=== PATIENT | female | born 1990 | race Caucasian/White ===

== ENCOUNTER 2022-11-04 18:17 | Emergency (ER) | payer OTHER ==
[~2022-11-04] VITALS: Ht 165.1 cm; Wt 63.5 kg
[2022-11-04] MEDS ORDERED: IBUPROFEN 600 MG TABLET ONE (18:54)
[2022-11-04] MEDS ORDERED: IBUPROFEN 600 MG TABLET PO ONE (19:00)
--- NOTE | 2022-11-04 19:20 | NUR ---
Pt is noted in bed alert, resonisve as report is received that pt came in C/O been sick in bed all day , Numbness to Right Shoulder and Right Arm and also Tightness to Neck .Pt care continue as she is due for CT off the Cervical Spine.
--- NOTE | 2022-11-04 19:25 | NUR ---
Pt is noted off CT. Pt care continue.
--- NOTE | 2022-11-04 19:45 | NUR ---
Pt is noted back from CT. Pt care continue.
[2022-11-04 20:02] VITALS: BP 110/72
[2022-11-04] MEDS ORDERED: IBUP-1953 PO (20:53)
[2022-11-04] MEDS ORDERED: METH-647 PO (20:53)
== END 2022-11-04 21:13 | disposition home or self-care (01) ==
LOC: ER 18:19
DX: M54.12 Radiculopathy, cervical region (principal); R25.2 Cramp and spasm; J45.909 Unspecified asthma, uncomplicated; D64.9 Anemia, unspecified
CPT/HCPCS: 72125-TC

== ENCOUNTER 2025-03-27 10:36 | Emergency (ER) | payer SELFPAY ==
[~2025-03-27] VITALS: Ht 165.1 cm; Wt 65.8 kg
[~2025-03-27 10:36] MED LIST: IBUP-1953 PO; METH-647 PO
[2025-03-27] MEDS ORDERED: LORA-259 PO (10:52)
[2025-03-27 11:18] VITALS: BP 123/74; TEMP 97.8; O2SAT 100
== END 2025-03-27 11:23 | disposition home or self-care (01) ==
LOC: ER 10:48
DX: F41.0 Panic disorder [episodic paroxysmal anxiety] (principal); J45.909 Unspecified asthma, uncomplicated; Z79.899 Other long term (current) drug therapy